=== PATIENT | male | born 1950 | race Caucasian/White ===

== ENCOUNTER 2018-06-24 06:21 | Inpatient (IN) ==
[2018-06-18 09:32] LABS: URINE SOURCE CLEAN CATCH
[2018-06-18 09:38] LABS: BASO# 0.04 X1000 (0.0-0.2); BASO% 0.5 % (0.0-0.8); EOS# 0.27 X1000 (0.0-0.7); EOS% 3.7 % (0.0-10.0); HEMATOCRIT 47.6 % (42.0-52.0); HEMOGLOBIN 15.1 g/dL (14.0-18.0); IMM GRAN# 0.02 X1000 (0.0-0.04); IMM GRAN% 0.3 % (0.0-0.5); LYMPH# 1.34 X1000 (1.2-3.4); LYMPH% 18.3 % (20.5-51.1); MCH 27.8 PG (27-31); MCHC 31.7 g/dL (33-37); MCV 87.7 FL (81-99); MONO# 0.63 X1000 (0.11-0.59); MONO% 8.6 % (1.7-9.3); MPV 11.1 FL (7.4-10.4); NEUT# 5.01 X1000 (1.4-6.5); NEUT% 68.6 % (42.2-75.2); PLT 243 X1000 (130-400); RBC 5.43 XMIL (4.7-6.1); RDW 15.4 % (11.5-14.5); WBC 7.31 X1000 (4.8-10.8)
[2018-06-18 09:47] LABS: INR 0.89; PROTIME 12.8 Seconds (11.0-16.0)
[2018-06-18 09:48] LABS: PTT 27.1 Seconds (22.3-41.8)
[2018-06-18 09:57] LABS: BILIRUBIN URINE NEGATIVE (NEGATIVE); BLOOD URINE NEGATIVE (NEGATIVE); COLOR YELLOW; GLUCOSE URINE NEGATIVE (NEGATIVE); KETONE URINE NEGATIVE (NEGATIVE); LEUKOCYTES URINE MODERATE (NEGATIVE); NITRITE URINE NEGATIVE (NEGATIVE); PROTEIN URINE NEGATIVE (NEGATIVE); SP GRAVITY URINE 1.005; TURBIDITY URINE CLEAR (CLEAR); UROBILINOGEN URINE NORMAL (NORMAL)
[2018-06-18 09:59] LABS: AGAP 13; BUN 11 mg/dL (8-22); CALCIUM 10.1 mg/dL (8.8-10.2); CHLORIDE 98 mmol/L (98-107); COSMO 283; CREATININE 0.8 mg/dL (0.7-1.2); ESTIMATED GFR > 60; GLUCOSE 170 mg/dL (70-104); POTASSIUM 3.9 mmol/L (3.5-5.1); SODIUM 140 mmol/L (136-145); TCO2 29 mmol/L (25-35); UR EPITHELIAL CELLS <10 /HPF (<10); URINE BACTERIA 4+ /HPF; URINE RBC <10 /HPF (<10)
[~2018-06-24 06:21] MED LIST: DIPRIVAN 1% ONE; FENTANYL ONE; QUELICIN (DOSE) ONE; XYLOCAINE-MPF 2% ONE
[2018-06-24] MEDS ORDERED: LASIX PO PRN (06:35)
[2018-06-24] MEDS ORDERED: TORADOL ONE (06:42)
[2018-06-24] MEDS ORDERED: DURAMORPH ONE (06:42)
[2018-06-24] MEDS ORDERED: CYKLOKAPRON 1,000 MG/NS 1,000 MG/100 ML IVPB ONE (06:42)
[2018-06-24] MEDS ORDERED: SODIUM CHLORIDE 0.9% ONE (06:42)
[2018-06-24] MEDS ORDERED: SENSORCAINE-MPF 0.5%/EPI 1:200,000 ONE (06:42)
[2018-06-24] MEDS ORDERED: NEOSPORIN G.U. IRRIGANT ONE (06:43)
[2018-06-24] MEDS ORDERED: EXPAREL 1.3% ONE (06:43)
[2018-06-24] MEDS ORDERED: CELEBREX ONE (06:52)
[2018-06-24] MEDS ORDERED: REGLAN ONE (06:52)
[2018-06-24] MEDS ORDERED: COLACE ONE (06:52)
[2018-06-24] MEDS ORDERED: LYRICA ONE (06:52)
[2018-06-24] MEDS ORDERED: PEPCID ONE (06:52)
[2018-06-24] MEDS ORDERED: KEFZOL 1 GM/D5W 2 GM/100 ML IVPB ONE (06:53)
[2018-06-24] MEDS ORDERED: LR 1,000 ML ONE (06:53)
[2018-06-24] MEDS: PRILOSEC PO SCH (07:07)
[2018-06-24] MEDS ORDERED: DIPRIVAN 1% ONE (07:24)
[2018-06-24] MEDS ORDERED: QUELICIN (DOSE) ONE (07:24)
[2018-06-24] MEDS ORDERED: SYNTHROID PO SCH (09:00)
[2018-06-24] MEDS ORDERED: AMARYL PO SCH (09:00)
[2018-06-24] MEDS ORDERED: MARCAINE 0.5% PF ONE (09:04)
[2018-06-24] MEDS ORDERED: DEPO-MEDROL ONE (09:04)
[2018-06-24] MEDS ORDERED: NORCURON ONE (09:15)
[2018-06-24] MEDS ORDERED: EPHEDRINE ONE (09:27)
[2018-06-24] MEDS ORDERED: DECADRON ONE (09:34)
[2018-06-24] MEDS ORDERED: OFIRMEV 1000 MG/ISOTONIC SOLN 1,000 MG/100 ML BOTTLE ONE (09:34)
[2018-06-24] MEDS ORDERED: ZOFRAN ONE (09:34)
[2018-06-24] MEDS ORDERED: NEO-SYNEPHRINE ONE (09:58)
[2018-06-24 10:09] LABS: URINE SOURCE CATH
[2018-06-24 10:17] LABS: BILIRUBIN URINE NEGATIVE (NEGATIVE); BLOOD URINE NEGATIVE (NEGATIVE); COLOR YELLOW; GLUCOSE URINE NEGATIVE (NEGATIVE); KETONE URINE NEGATIVE (NEGATIVE); LEUKOCYTES URINE NEGATIVE (NEGATIVE); NITRITE URINE NEGATIVE (NEGATIVE); PROTEIN URINE NEGATIVE (NEGATIVE); SP GRAVITY URINE 1.002; TURBIDITY URINE CLEAR (CLEAR); UROBILINOGEN URINE NORMAL (NORMAL)
[2018-06-24 10:19] LABS: UR EPITHELIAL CELLS <10 /HPF (<10); URINE BACTERIA NEGATIVE /HPF; URINE RBC <10 /HPF (<10); URINE WBC <10 /HPF (<10)
[2018-06-24] MEDS ORDERED: HYDROCHLOROTHIAZIDE PO SCH (10:30)
--- NOTE | 2018-06-24 11:10 | OPERATIVE NOTE ---
PROCEDURE DATE: 06/24/2018 PREOPERATIVE DIAGNOSES: 1. Right degenerative glenohumeral arthritis. 2. Left degenerative glenohumeral arthritis. POSTOPERATIVE DIAGNOSES: 1. Right degenerative glenohumeral arthritis. 2. Left degenerative glenohumeral arthritis. PROCEDURES PERFORMED: 1. Right reverse total shoulder arthroplasty with DePuy Delta XTEND size 14 press-fit stem, a 42, + 6 humeral cup, 42 eccentric Glenosphere, and a standard metaglene. 2. Injection of the left glenohumeral joint. SURGEON: Bennett Dahl MD. STEAM SHOVEL OPERATING ENGINEER: AURA Cortez. SECOND CLIENT ADMINISTRATOR: Fabricio Darling RN. ANESTHESIA: General. IV FLUIDS: 2200 mL of lactated Ringer's. ESTIMATED BLOOD LOSS: 200 mL. COMPLICATIONS: None. INDICATION: The patient is a pleasant, 67-year-old male with a chronic history of pain and discomfort of the bilateral shoulders, right worse than left. X-rays revealed significant degenerative arthritis and recommendation to proceed with right reverse total shoulder arthroplasty was offered. Risks and benefits of surgery were explained, including the risks of anesthesia, , bleeding, infection, failure to relieve pain, postoperative stiffness, nerve injury, blood clots, and other imponderables. All questions were answered. The patient and family wished to proceed with surgery. DETAILS OF OPERATION: The patient was taken to the operating room and placed supine on the operating table. Once adequate anesthesia was obtained, attention was turned to the left shoulder. Under sterile technique, 80 mg of Depo-Medrol along with 0.5% Marcaine was injected intra-articularly. After that had been performed, the patient was then placed in the semi-Munoz, beach-chair position. The right shoulder was subsequently prepped and draped in the usual sterile fashion. A standard deltopectoral incision was made with a skin knife. Hemostasis was obtained using electrocautery. The deltopectoral interval was then developed with the cephalic vein retracted laterally with the deltoid. The Boone retractor was then placed. The clavipectoral fascia was then elevated along with the conjoined tendon. Boone retractor was placed deep to this. Approximately 1 cm medial to the insertion, the subscapularis tendon was then released. Stay suture was placed. The patient had significant degenerative arthritis. A starting reamer was then passed. Further release of the posterior and superior aspect of the rotator cuff was performed. A starting reamer was then passed, upsized to a size 14. Intramedullary guide with a humeral head cutting block was pinned in position. The proximal humerus, the humeral head was then resected. Inferior osteophyte was removed with a rongeur. A protective disk was then placed. Attention then turned to the glenoid. Circumferential dissection was then performed with a deep knife. A guide was then placed in position. Guide pin was placed. The reaming was then conducted. The central hole was then dilated. A standard metaglene was then placed. Three locking screws and one nonlocking screw were placed. The wound was copiously irrigated. A 42 eccentric Glenosphere was then placed with the eccentricity placed inferiorly. Attention then turned to the proximal humerus where the intramedullary guide was placed in position. The reaming was then conducted. The wound was copiously irrigated. A size 14 press-fit stem was impacted with autologous bone graft. It had good fit. Trial cup size was placed and a 42, +6 humeral cup was deemed to be the correct size. The trial cup was removed. The wound was copiously irrigated. A 42, +6 humeral cup was then placed. The shoulder was reduced, carried through a range of motion. Had good range of motion and good stability. Exparel was placed in the deep soft tissue, as well as subcutaneous tissue. The wound was copiously irrigated with antibiotic pulsatile lavage. Then #2 FiberWire was used to repair the subscapularis tendon. Final irrigation was then performed. Then 2-0 Vicryl was used to repair the subcutaneous tissue, followed by a running 2-0 Prolene. Benzoin and Steri-Strips were applied. Adaptic, sterile 4 x 4's, ABD pad, and tape were applied to the right shoulder, followed by a shoulder immobilizer. All counts were correct. Patient tolerated the procedure well and was transferred to the recovery room in stable condition. cc: Bennett Dahl MD
[2018-06-24] MEDS ORDERED: DUONEB (A & A) INH ONE (11:24)
[2018-06-24] MEDS ORDERED: NS 1,000 ML ONE (11:40)
[2018-06-24] MEDS: OXY IR ONE (11:47)
--- NOTE | 2018-06-24 11:59 | Diag Imaging Result Doc PS360 ---
EXAM: SHOULDER 1 VIEW RIGHT 06/24/2018 HISTORY: s/p rt total shoulder TECHNIQUE: Right shoulder two views COMMENT: There is a total shoulder arthroplasty. The study is somewhat suboptimal technically. There are some degenerative changes in the acromioclavicular joint. There is no evidence of acute fracture. IMPRESSION: Postsurgical changes. Electronically signed by Mario Murdock 06/24/2018 11:57 AM
[2018-06-24] MEDS ORDERED: MORPHINE IV PRN ×3 (13:00)
[2018-06-24] MEDS ORDERED: ZOFRAN PO PRN (13:00)
[2018-06-24] MEDS ORDERED: NS 1,000 ML IV SCH (13:00)
[2018-06-24] MEDS ORDERED: OXY IR PO PRN (13:00)
[2018-06-24] MEDS: OXY IR PO PRN ×3 (14:14→21:31)
[2018-06-24] MEDS ORDERED: CYKLOKAPRON 1,000 MG/NS 1,000 MG/100 ML IVPB IV ONE (15:30)
[2018-06-24] MEDS ORDERED: PNEUMOVAX 23 IM ONE (18:00)
[2018-06-24] MEDS: AVAPRO PO SCH (20:08)
[2018-06-24] MEDS: TYLENOL PO SCH ×2 (20:09→21:31)
[2018-06-24] MEDS: KEFZOL 2 GM/D5W 2 GM/50 ML IVPB IV SCH ×2 (20:10→21:30)
[2018-06-24] MEDS: ASPIRIN PO SCH (20:24)
[2018-06-24] MEDS: COREG PO SCH ×2 (20:24→21:32)
[2018-06-24] MEDS: KLOR-CON PO SCH (20:25)
[2018-06-24] MEDS: ZYLOPRIM PO SCH (20:25)
[2018-06-24] MEDS: PRAVACHOL PO SCH (20:26)
[2018-06-24] MEDS: NORVASC PO SCH (20:27)
[2018-06-24] MEDS: PERIDEX MT SCH (21:30)
[2018-06-25] MEDS: OXY IR ONE (01:02)
[2018-06-25] MEDS: TYLENOL PO SCH ×3 (01:03→05:36)
[2018-06-25] MEDS ORDERED: FLU VACCINE IM ONE (01:04)
[2018-06-25] MEDS: OXY IR PO PRN ×2 (03:56→09:05)
[2018-06-25] MEDS: PRILOSEC PO SCH ×2 (05:36→06:40)
[2018-06-25] MEDS: KEFZOL 2 GM/D5W 2 GM/50 ML IVPB IV SCH (05:41)
[2018-06-25 06:00] LABS: HEMATOCRIT 40.2 % (42.0-52.0); HEMOGLOBIN 12.8 g/dL (14.0-18.0)
--- NOTE | 2018-06-25 06:12 | PROGRESS NOTE ---
DATE: 06/25/2018 SUBJECTIVE: The patient is a pleasant, 67-year-old male who is 1 day status post right reverse shoulder arthroplasty. He is currently resting comfortably. He also received an injection in his left shoulder. He seemed to have obtained some relief from the injection. OBJECTIVE: On examination of the patient's right shoulder, his wound looks good. There are no signs or symptoms of infection. He is neurovascularly distally. He is able to flex and extend his fingers. Labs are pending. IMPRESSION: Status post right reverse shoulder arthroplasty. PLAN: At this point, plan on discharging him home. We will arrange for outpatient physical therapy. cc: Bennett Dahl MD
[2018-06-25 06:22] LABS: AGAP 11; BUN 12 mg/dL (8-22); CALCIUM 8.9 mg/dL (8.8-10.2); CHLORIDE 102 mmol/L (98-107); COSMO 285; CREATININE 0.9 mg/dL (0.7-1.2); ESTIMATED GFR > 60; GLUCOSE 269 mg/dL (70-104); POTASSIUM 4.2 mmol/L (3.5-5.1); SODIUM 138 mmol/L (136-145); TCO2 25 mmol/L (25-35)
[2018-06-25 08:23] VITALS: BP 133/75
[2018-06-25] MEDS ORDERED: SYNTHROID PO SCH (09:00)
[2018-06-25] MEDS ORDERED: HYDROCHLOROTHIAZIDE PO SCH (09:00)
[2018-06-25] MEDS ORDERED: AMARYL PO SCH (09:00)
[2018-06-25] MEDS: PERIDEX MT SCH (09:06)
[2018-06-25] MEDS: ZYLOPRIM PO SCH (09:07)
[2018-06-25] MEDS: KLOR-CON PO SCH (09:07)
[2018-06-25] MEDS: PRAVACHOL PO SCH (09:08)
[2018-06-25] MEDS: NORVASC PO SCH (09:09)
[2018-06-25] MEDS: COREG PO SCH (09:09)
[2018-06-25] MEDS: ASPIRIN PO SCH (09:10)
[2018-06-25] MEDS: AVAPRO PO SCH (09:10)
== END 2018-06-25 11:49 | disposition home or self-care (01) | DRG 483 ==
LOC: SURHOLD 06:21 → 4N 10:15
PROVIDERS: ADMIT Orthopaedic Surgery Adult Reconstructive Orthopaedic Surgery; ATTEND Orthopaedic Surgery Adult Reconstructive Orthopaedic Surgery
CPT/HCPCS: 73020; 73030; 80048; 81001; 82948; 85014; 85018; 85025; 85610; 85730; 86850; 86900; 86901; 88305; 88311; 90686; 90732; 93005; 94761; 94799; A9270; C1713; C9290; J0131; J0330; J0690; J1040; J1100; J1885; J2274; J2275; J2370; J2405; J3010; J7030; J7120; Q9974; S0020; XXXXX